=== PATIENT | male | born 1990 | race Caucasian/White ===

== ENCOUNTER 2019-10-07 19:09 | Emergency (ER) | payer SELFPAY ==
[~2019-10-07] VITALS: Ht 180.3 cm; Wt 90.9 kg
[2019-10-07 21:22] VITALS: BP 143/84
== END 2019-10-07 21:24 | disposition home or self-care (01) ==
LOC: EMS 19:12
DX: R06.00 Dyspnea, unspecified (principal); R06.02 Shortness of breath; F17.210 Nicotine dependence, cigarettes, uncomplicated; F19.90 Other psychoactive substance use, unspecified, uncomplicated
CPT/HCPCS: 93005

== ENCOUNTER 2021-03-09 15:18 | Emergency (ER) | payer MEDICAID ==
[~2021-03-09] VITALS: Ht 172.7 cm; Wt 77.3 kg
[2021-03-09] MEDS ORDERED: ONDANSETRON HCL 4 MG/2 ML VIAL IVP ONE (15:45)
[2021-03-09] MEDS ORDERED: PERTUSS(ACELL),DIPH,TET VAC/PF 0.5 ML SYRINGE IM. ONE (15:45)
[2021-03-09] MEDS ORDERED: MORPHINE SULFATE 4 MG/ML SYRINGE IVP ONE (15:45)
[2021-03-09] MEDS ORDERED: SODIUM CHLORIDE 0.9% 250 ML IRRIG SOLUTION BOTTLE IRRIG ONE ×2 (15:45→18:30)
[2021-03-09] MEDS ORDERED: CeFAZolin 1 GM/DEXTROSE 50 ML IV ONE (17:15)
[2021-03-09] MEDS ORDERED: LIDOCAINE 1% 10 ML VIAL ONE (18:19)
[2021-03-09] MEDS ORDERED: LIDOCAINE 1% 10 ML VIAL ID ONE (18:30)
[2021-03-09 19:45] VITALS: BP 144/95
== END 2021-03-09 19:46 | disposition home or self-care (01) ==
LOC: EMS 15:21
DX: S02.2XXA Fracture of nasal bones, initial encounter for closed fracture (principal); S01.511A Laceration without foreign body of lip, initial encounter; S51.011A Laceration without foreign body of right elbow, initial encounter; S80.212A Abrasion, left knee, initial encounter; S80.211A Abrasion, right knee, initial encounter; S40.812A Abrasion of left upper arm, initial encounter; S40.811A Abrasion of right upper arm, initial encounter; F17.210 Nicotine dependence, cigarettes, uncomplicated; F19.90 Other psychoactive substance use, unspecified, uncomplicated; W22.8XXA Striking against or struck by other objects, initial encounter; Y93.39 Activity, other involving climbing, rappelling and jumping off; Y92.89 Other specified places as the place of occurrence of the external cause; Y99.8 Other external cause status
CPT/HCPCS: 12001; 12011; 70450; 70486; 71045; 72125; 90471; 90715; 96365; 96375; 99285; J0690; J2270; J2405; J3490

== ENCOUNTER 2025-03-20 09:32 | Emergency (ER) | payer MEDICAID, OTHER ==
[~2025-03-20] VITALS: Ht 180.3 cm; Wt 106.8 kg
[2025-03-20 09:50] VITALS: TEMP 98.6
[2025-03-20 11:17] VITALS: BP 109/66; PULSE 99; RESP 18; O2SAT 98
== END 2025-03-20 19:23 | disposition home or self-care (01) ==
LOC: EMS 09:32
DX: M54.9 Dorsalgia, unspecified (principal); F17.210 Nicotine dependence, cigarettes, uncomplicated; F15.90 Other stimulant use, unspecified, uncomplicated
CPT/HCPCS: 99282; Z7502